=== PATIENT | male | born 1995 | race Caucasian/White ===

== ENCOUNTER 2017-06-12 19:18 | Emergency (ER) | payer OTHER ==
[2017-06-12 19:29] VITALS: TEMP 98.4; O2SAT 97
[2017-06-12] MEDS ORDERED: NS 1,000 ML IV ONE (19:54)
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
[2017-06-12] MEDS ORDERED: LORazepam 2 MG/ML INJ IVP ONE (20:10)
[2017-06-12 20:23] LABS: PLATELET COUNT 241 10^3/uL (150-400)
[2017-06-12] MEDS ORDERED: LORAZEPAM 1 MG PREPACK#4 BTL TAKEHOME ONE (21:09)
[2017-06-12 21:25] VITALS: BP 128/72; PULSE 67; RESP 16
== END 2017-06-12 21:25 | disposition home or self-care (01) ==
PROC: 3E0337Z Introduction of Electrolytic and Water Balance Substance into Peripheral Vein, Percutaneous Approach (ICD-10-PCS; principal; 2017-06-12)
DX: G25.81 Restless legs syndrome (principal); T43.595A Adverse effect of other antipsychotics and neuroleptics, initial encounter; T42.6X5A Adverse effect of other antiepileptic and sedative-hypnotic drugs, initial encounter; E86.9 Volume depletion, unspecified
CPT/HCPCS: 96374; J2060

== ENCOUNTER 2017-06-25 12:01 | Emergency (ER) | payer OTHER ==
[2017-06-25 12:07] VITALS: RESP 18; O2SAT 95
[2017-06-25 12:29] LABS: % IMMATURE GRANULYOCYTES 0.2 % (0.0-1.1); ABSOLUTE IMMATURE GRANULOCYTES 0.01 10^3/uL (0.00-0.10); ADD DIFF? NO; ADD MORPH? NO; ADD SCAN? NO; ATYPICAL LYMPHOCYTE FLAG 0 (0-99); FRAGMENT RBC FLAG 10 (0-99); HEMATOCRIT 45.3 % (40.0-51.0); HEMOGLOBIN 16.1 g/dL (13.7-17.5); LEFT SHIFT FLG 0 (0-99); LIPEMIA HEMOLYSIS FLAG 90 (0-99); MEAN CELL HEMOGLOBIN 30.3 pg (27.9-34.1); MEAN CELL HEMOGLOBIN CONCENTR. 35.5 g/dL (32.4-36.7); MEAN CELL VOLUME 85.2 fL (81.5-99.8); MEAN PLATELET VOLUME 10.9 fL (8.7-11.7); PLATELET CLUMPS FLAG 10 (0-99); PLATELET COUNT 239 10^3/uL (150-400); RED BLOOD CELL COUNT 5.32 10^6/uL (4.40-6.38); RED CELL DISTRIBUTION WIDTH 11.9 % (11.5-15.2)
--- NOTE | 2017-06-25 12:29 | EDPHY ---
General - History Smoking Status: Never smoked Narrative: The patient was evaluated and managed by the physician insurance assistant. I have reviewed this chart and I agree with the findings and plan of care as documented , as indicated by my signature. I am the secondary supervising physician. I spoke with the patient. He is clearly paranoid and delusional. Placement has been arranged at [place]. Transportation was arranged. I have signed the EMTALA form. (Ana Cristina Daniel) CHIEF COMPLAINT: M1 hold HISTORY OF PRESENT ILLNESS: Patient presents on M1 hold [facility] at . M1 was completed by the licensed mental health professional there. It stated evidence of psychotic delusions, disorientation, gravely disabled. Patient will not discuss this with these. He is on his cell phone and will not put the cellphone down. He will not provide any information let me examine him at this time. Unable to obtain any and information due to this. PSYCHIATRIC DIAGNOSES: Unknown PRIOR PSYCHIATRIC EVALUATIONS: Unknown M1/DETAINER: [facility] REVIEW OF SYSTEMS: Ten systems reviewed and are negative unless otherwise noted in the HPI EXAMINATION General Appearance: Alert, no distress, talking on his cell phone, fidgeting Head: normocephalic, atraumatic Eyes: Pupils equal and round, no conjunctival pallor or injection ENT, Mouth: Mucous membranes moist. Airway appears to be patent Neck: Normal inspection, midline trachea Respiratory: No retractions or distress visualized. Cardiovascular: Regular rate Gastrointestinal: Abdomen is nondistended Back: non-tender, no bony abnormalities Neurological: GCS 15. A&O, nonfocal, Skin: Warm and dry, no rash Extremities: Nontender, no pedal edema Psychiatric: Denies suicidal ideation. Denies homicidal ideation. Flight of ideas with paranoid delusions. DIFFERENTIAL DIAGNOSES: Including but not limited to psychosis, delusions, schizophrenia, schizoaffective, psychotic break MDM: 1:15 p.m. Unable to examine the patient at this time due to him using his cell phone. M1 hold was completed prior to arrival here. He has been medically cleared at this time we will contact [facility] for evaluation. I will attempt to re-evaluate him again 2:25 p.m. Patient currently being evaluated at this time. 3:00 p.m. I was able to evaluate the patient at this time. He is not suicidal. He was expressing id is likely of delusion. He is not suicidal. He was not encephalopathic. Difficulty focusing difficulty answer my questions. He was reportedly altered prior to arrival but I do not appreciate this at this time. His mother asked to speak with me. The patient gives permission, and there was a signed HIPAA form for this as well. We talked for nearly 20 minutes regarding the patient's recent psychotic episodes. He has been hospitalized twice for this in the past month. She feels the patient is having adverse reaction to the antipsychotics and administered. At this time awaiting the placement recommendation. 4:15 p.m. Notified by [facility] a mental health professional, Bing. She has recommended placement in the patient will likely be accepted at [address] [place] [address]. She is awaiting confirmation at this time. 5:[address] p[address] At this time Dr. Daniel will assume care the patient. He is pending placement at this time. He is resting comfortably and cooperative at this time. Please see her note for final disposition. (Yousuf Reyes) - Objective Vital Signs: Initial Vital Signs Temperature (C) 98.6 F 06/25/17 12:01 Heart Rate 86 06/25/17 12:01 Respiratory Rate 18 06/25/17 12:01 Blood Pressure 142/86 H 06/25/17 12:01 O2 Sat (%) 95 06/25/17 12:01 O2 Delivery Mode Room Air Allergies/Adverse Reactions: aripiprazole [From Abilify] Allergy (Verified 06/25/17 12:06) escitalopram [From Lexapro] Allergy (Verified 06/12/17 19:26) Home Medications: Medication Instructions Recorded ARIPiprazole [Abilify 10 mg (*)] 5 - 10 mg PO DAILY 06/25/17 Divalproex ER [Depakote ER 500 MG 500 mg PO HS 06/25/17 (*)] Gabapentin [Neurontin 100 MG (*)] 200 mg PO TID 06/25/17 Multivitamins [Multivitamin (*)] 1 each PO DAILY 06/25/17 Laboratory Results: Laboratory Results 06/25/17 12:20 06/25/17 12:20 Medications Given: Discontinued Medications Gabapentin (Neurontin) 200 mg PO EDNOW ONE Stop: 06/25/17 20:06 Last Admin: 06/25/17 20:22 Dose: 200 mg Departure - Departure Disposition: Other Psych, Not [place] Clinical Impression: Acute psychosis Condition: Good Referrals: NONE *PRIMARY CARE P,. [Primary Care Provider] - As per Instructions
[2017-06-25 12:45] LABS: ANION GAP 13 mEq/L (8-16); CALCIUM 9.7 mg/dL (8.5-10.4); CARBON DIOXIDE 23 mEq/l (22-31); CHLORIDE 107 mEq/L (97-110); CREATININE 1.2 mg/dL (0.7-1.3); ETHANOL SERUM < 10 mg/dL (0-10); GLOMERULAR FILTRATION RATE > 60; GLUCOSE 114 mg/dL (70-100); POTASSIUM 4.1 mEq/L (3.5-5.2); SODIUM 143 mEq/L (134-144)
[2017-06-25] MEDS ORDERED: GABAPENTIN 100 MG CAP PO ONE (20:05)
[2017-06-25 20:22] VITALS: BP 125/82; PULSE 91; TEMP 97.7
== END 2017-06-25 20:52 ==
LOC: EEVIPCON 12:01
DX: F23 Brief psychotic disorder (principal)
CPT/HCPCS: 80305; G0480

== ENCOUNTER 2017-07-22 01:39 | Emergency (ER) | payer OTHER ==
--- NOTE | 2017-07-22 02:01 | EDPHY ---
H & P Stated Complaint: Seroquil injestion/OD Time Seen by Provider: 07/22/17 01:55 HPI/ROS: Chief Complaint: Overdose HPI: 22-year-old male who was just prescribed Seroquel and lithium yesterday. Patient states that at 9 o'clock you took 1 Seroquel. After an hour he did not feel any affected he wanted to sleep so he states he took 14 more. Patient 3 hr later told his grandmother who called EMS. Patient is still complaining about being up to sleep. Denies being suicidal. He was not trying to harm self , or other he was trying to sleep. Did have a recent admission and diagnosis of bipolar disorder for which she was started on these medications. Denies any fevers or chills. No nausea or vomiting. Denies hallucinations at this time. ROS: 10 point Review of Systems is negative except as noted in the HPI. PMH: Bipolar disorder Social History: No smoking, no alcohol, no recreational drug use Family History: non-contributory Physical Exam: Gen: Awake, Alert, No Distress HEENT: Nose: no rhinorrhea Eyes: PERRLA, EOMI Mouth: Moist mucosa Neck: Supple, no JVD Chest: nontender, lungs clear to auscultation Heart: S1, S2 normal, no murmur Abd: Soft, non-tender, no guarding Back: no CVA tenderness, no midline tenderness Ext: no edema, non-tender Skin: no rash Neuro: CN II-XII intact, Sensation grossly intact, Strength 5/5 in bilateral upper and lower extremities - Personal History Current Tetanus/Diphtheria Vaccine: Unsure Current Tetanus Diphtheria and Acellular Pertussis (TDAP): Unsure - Medical/Surgical History Hx Asthma: No Hx Chronic Respiratory Disease: No Hx Diabetes: No Hx Cardiac Disease: No Hx Renal Disease: No Hx Cirrhosis: No Hx Alcoholism: Yes Hx HIV/AIDS: No Hx Splenectomy or Spleen Trauma: No Other PMH: anxiety - Social History Smoking Status: Never smoked Constitutional: Initial Vital Signs Temperature (C) 36.4 C 07/22/17 01:40 Heart Rate 93 07/22/17 01:40 Respiratory Rate 15 07/22/17 01:40 Blood Pressure 125/72 H 07/22/17 01:40 O2 Sat (%) 96 07/22/17 01:40 O2 Delivery Mode Room Air Allergies/Adverse Reactions: aripiprazole [From Abilify] Allergy (Verified 06/25/17 12:06) escitalopram [From Lexapro] Allergy (Verified 06/12/17 19:26) Home Medications: Medication Instructions Recorded ARIPiprazole [Abilify 10 mg (*)] 5 - 10 mg PO DAILY 06/25/17 Divalproex ER [Depakote ER 500 MG 500 mg PO HS 06/25/17 (*)] Gabapentin [Neurontin 100 MG (*)] 200 mg PO TID 06/25/17 Multivitamins [Multivitamin (*)] 1 each PO DAILY 06/25/17 Medical Decision Making - Diagnostics EKG Interpretation: ECG time 4:23 a.m., sinus rhythm with a rate of 74, normal axis, normal intervals, no acute ST or T-wave changes. Normal QT. ED Course/Re-evaluation: Patient is awake and alert. He is acting appropriately. He is continuing to contract for safety. He denies any suicidal thoughts or attempts but states he just wanted to sleep. I have advised him to take his medications only as prescribed and advised him of the dangers of overdosing medications. He states he understands this. He will follow up with a psychiatrist and mental health providers today. Grandmother is happy to take him home. Is not meet any criteria for mental health hold at this time. - Data Points Laboratory Results: Laboratory Results 07/22/17 01:45 07/22/17 01:45 07/22/17 07/22/17 01:45 01:45 WBC 8.35 10^3/uL 10^3/uL (3.80-9.50) RBC 5.11 10^6/uL 10^6/uL (4.40-6.38) Hgb 15.5 g/dL g/dL (13.7-17.5) Hct 45.0 % % (40.0-51.0) MCV 88.1 fL fL (81.5-99.8) MCH 30.3 pg pg (27.9-34.1) MCHC 34.4 g/dL g/dL (32.4-36.7) RDW 12.4 % % (11.5-15.2) Plt Count 224 10^3/uL 10^3/uL (150-400) MPV 11.0 fL fL (8.7-11.7) Neut % (Auto) 58.1 % % (39.3-74.2) Lymph % (Auto) 34.4 % % (15.0-45.0) [place] % (Auto) 6.2 % % (4.5-13.0) Eos % (Auto) 1.0 % % (0.6-7.6) Baso % (Auto) 0.1 % L % (0.3-1.7) Nucleat RBC Rel Count 0.0 % % (0.0-0.2) Absolute Neuts (auto) 4.85 10^3/uL 10^3/uL (1.70-6.50) Absolute Lymphs (auto) 2.87 10^3/uL 10^3/uL (1.00-3.00) Absolute Monos (auto) 0.52 10^3/uL 10^3/uL (0.30-0.80) Absolute Eos (auto) 0.08 10^3/uL 10^3/uL (0.03-0.40) Absolute Basos (auto) 0.01 10^3/uL L 10^3/uL (0.02-0.10) Absolute Nucleated RBC 0.00 10^3/uL 10^3/uL (0-0.01) Immature Gran % 0.2 % % (0.0-1.1) Immature Gran # 0.02 10^3/uL 10^3/uL (0.00-0.10) Sodium 144 mEq/L mEq/L (134-144) Potassium 3.7 mEq/L mEq/L (3.5-5.2) Chloride 103 mEq/L mEq/L (97-110) Carbon Dioxide 28 mEq/l mEq/l (22-31) Anion Gap 13 mEq/L mEq/L (8-16) BUN 11 mg/dL mg/dL (7-23) Creatinine 1.0 mg/dL mg/dL (0.7-1.3) Estimated GFR > 60 Glucose 135 mg/dL H mg/dL (70-100) Calcium 10.1 mg/dL mg/dL (8.5-10.4) [place] < 0.2 mEq/L L mEq/L (0.6-1.2) Ethyl Alcohol < 10 mg/dL mg/dL (0-10) Departure - Departure Disposition: Home, Routine, Self-Care Clinical Impression: Overdose Condition: Good Instructions: Adult Overdose (ED) Additional Instructions: Please only take her medications as prescribed. Follow up with your mental health providers today. Return to the emergency department for thoughts of suicide, worsening depression , hallucinations, or any other concerns. Referrals: Patient,NotPresent [Unknown] - As per Instructions
[2017-07-22 03:53] LABS: % IMMATURE GRANULYOCYTES 0.2 % (0.0-1.1); ABSOLUTE IMMATURE GRANULOCYTES 0.02 10^3/uL (0.00-0.10); ADD DIFF? NO; ADD MORPH? NO; ADD SCAN? NO; ATYPICAL LYMPHOCYTE FLAG 0 (0-99); FRAGMENT RBC FLAG 0 (0-99); HEMOGLOBIN 15.5 g/dL (13.7-17.5); LEFT SHIFT FLG 0 (0-99); LIPEMIA HEMOLYSIS FLAG 90 (0-99); MEAN CELL HEMOGLOBIN 30.3 pg (27.9-34.1); MEAN CELL HEMOGLOBIN CONCENTR. 34.4 g/dL (32.4-36.7); MEAN CELL VOLUME 88.1 fL (81.5-99.8); PLATELET CLUMPS FLAG 0 (0-99); PLATELET COUNT 224 10^3/uL (150-400); RED BLOOD CELL COUNT 5.11 10^6/uL (4.40-6.38); RED CELL DISTRIBUTION WIDTH 12.4 % (11.5-15.2)
[2017-07-22 03:59] LABS: ANION GAP 13 mEq/L (8-16); CALCIUM 10.1 mg/dL (8.5-10.4); CARBON DIOXIDE 28 mEq/l (22-31); CHLORIDE 103 mEq/L (97-110); ETHANOL SERUM < 10 mg/dL (0-10); GLOMERULAR FILTRATION RATE > 60; GLUCOSE 135 mg/dL (70-100); POTASSIUM 3.7 mEq/L (3.5-5.2); SODIUM 144 mEq/L (134-144)
[2017-07-22 04:02] LABS: LITHIUM < 0.2 mEq/L (0.6-1.2)
--- NOTE | 2017-07-22 04:45 | CPEKG ---
Heart Rate: 74 RR Interval: 811 P-R Interval: 152 QRSD Interval: 90 QT Interval: 372 QTC Interval: 413 P Silas: 63 QRS Silas: 64 T Wave Silas: 65 EKG Severity - NORMAL ECG - EKG Impression: SINUS RHYTHM Electronically Signed By: Roe Smith 22-Jul-2017 23:35:30
[2017-07-22 05:49] VITALS: O2SAT 95
[2017-07-22 06:33] VITALS: BP 115/62; PULSE 80; RESP 14; TEMP 98.6
== END 2017-07-22 06:30 | disposition home or self-care (01) ==
LOC: EDUNIT#
DX: T43.591A Poisoning by other antipsychotics and neuroleptics, accidental (unintentional), initial encounter (principal)
CPT/HCPCS: G0480

== ENCOUNTER 2018-07-14 21:26 | Inpatient (IN) | payer OTHER ==
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
[2018-07-14] MEDS ORDERED: OLANZapine DISINTEGR 10 MG TAB ONE (21:35)
[2018-07-14] MEDS ORDERED: LORazepam 1 MG TAB ONE (21:35)
[2018-07-14 21:54] LABS: PLATELET COUNT 265 10^3/uL (150-400)
[2018-07-14] MEDS ORDERED: OLANZapine DISINTEGR 10 MG TAB PO ONE (22:07)
[2018-07-14] MEDS ORDERED: LORazepam 1 MG TAB PO ONE (22:07)
--- NOTE | 2018-07-14 23:47 | ASMTCMCOM ---
CM Note CM Note Notes: Pt is sedated and not able to wake for evaluation. Clinician called [facility] at listed number. Phone rings once and stops. Clinician will seek better working number for [facility] once pt awakes. FOP called and message left for him. Date Signed: 07/14/2018 11:47 PM Electronically Signed By:Bing Devine
[2018-07-15] MEDS ORDERED: LORazepam 1 MG TAB PO ONE ×2 (04:57→08:42)
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
--- NOTE | 2018-07-15 07:49 | ASMTTCLDSP ---
TLC Discharge Disposition Disposition: Answers: Admit Disposition Notes: Notes: Addmit 3N. Discharge Concerns/Recommendations: Notes: In consultation with [facility] ED physician, Chele Trevino MD and on-call psychiatrist, Nikita Ugarte MD, both concurred that pt appears to meet 27-65 criteria requiring psychiatric hospitalization as pt appears to be at risk of harm to self/others/gravely disabled due to a mental illness condition. Pt was given (but declined to sign) the 3N prohibited belongings list while in the ED. Was patient given the Answers: Yes Inpatient Behavioral Health Prohibited Belongings List while in the ED? For inpatient Nikita Ugarte MD admission, the following psychiatrist agreed to accept patient for admission to Behavioral Health ([facility]): Type of Hold: Answers: M1/72-hour Hold Hold initiated by: Answers: ED Physician Date Signed: 07/15/2018 07:49 AM Electronically Signed By:Brian Thomas
[2018-07-15] MEDS ORDERED: OLANZapine 10 MG/2 ML VIAL IM ONE (08:42)
[2018-07-15] MEDS ORDERED: LORazepam 1 MG TAB ONE (08:42)
[2018-07-15] MEDS ORDERED: OLANZapine 10 MG/2 ML VIAL ONE (08:42)
[2018-07-15] MEDS ORDERED: OLANZapine DISINTEGR 10 MG TAB PO PRN (10:14)
[2018-07-15] MEDS ORDERED: MAGNESIUM HYDROXIDE 30 ML UDCUP PO PRN (10:14)
[2018-07-15] MEDS ORDERED: LORazepam 0.5 MG TAB PO PRN (10:14)
[2018-07-15] MEDS ORDERED: LITHIUM CARBONATE ER 300 MG TAB PO ONE (10:57)
[2018-07-15] MEDS: ACETAMINOPHEN 325 MG TAB PO PRN (11:45)
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
--- NOTE | 2018-07-15 14:46 | ASMTCMCOM ---
CM Note CM Note Notes: CC attempted to meet with pt several times but each time pt was unavailable due to meeting with MD, with family or was sleeping. Date Signed: 07/15/2018 02:45 PM Electronically Signed By:Jenna Romo
--- NOTE | 2018-07-15 14:59 | PDMN ---
Medical Necessity Medical necessity: Pt meets inpt criteria per MD order and [facility] [id number], Bipolar Disorders, Adult: Inpatient Care, 4 days. 23 y/o w/hx bipolar 1 disorder on M1 Hold due to being gravely disabled due to a mental illness admitted with current acute psychosis and nicolasa requiring inpt psychiatric hospitalization.
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
[2018-07-15] MEDS: OLANZapine DISINTEGR 10 MG TAB PO PRN (16:15)
[2018-07-15] MEDS: LORazepam 0.5 MG TAB PO PRN ×2 (16:17→22:11)
[2018-07-15] MEDS: MAG HYDROX/AL HYDROX/SIMETH 30 ML UDCUP PO PRN (17:26)
[2018-07-15] MEDS: LITHIUM CARBONATE ER 300 MG TAB PO SCH (21:03)
[2018-07-16] MEDS ORDERED: LORazepam 1 MG TAB ONE (04:02)
[2018-07-16] MEDS ORDERED: LORazepam 1 MG TAB PO ONE ×3 (04:15→06:37)
[2018-07-16] MEDS ORDERED: OLANZapine DISINTEGR 10 MG TAB PO ONE ×2 (04:15→21:00)
[2018-07-16] MEDS ORDERED: LORazepam 2 MG/ML INJ IM PRN ×2 (04:15→04:18)
[2018-07-16] MEDS ORDERED: OLANZapine 10 MG/2 ML VIAL IM PRN ×2 (04:15→04:41)
--- NOTE | 2018-07-16 04:39 | SOAPPROG ---
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 Had been off medications, with +Utox THC. Received zyprexa 10 po and Ativan 2mg po in ED. Took zyprexa 10m po and [place] 600mg this pm. 07/16/18 04:37 Phone call from nursing staff to inform patient was placed in seclusion. Was sleeping earlier in the evening but apparently awakened feeling agitated, attempted to hit staff, yelling/screaming and was not responding to verbal redirection. Required physical restraint by security in order to enter seclusion. Yelled that he would go "all McMurphy". Pounding on seclusion door/ mckeon. 2nd security also called to unit. Due to patient's nicolasa and psychosis, with threatening behavior and verbal hostility, he was placed in locked seclusion. With 2 security standing by, RN offered patient medications and he accepted zyprexa 10mg po and Ativan 2mg po. RN reported VS with elevated HR and SBP, likely due to acute agitation. Due to his psychosis and unpredictable behavior, he was felt to be an imminent danger to others and started on emergency medications: EMEDS Day #1: Zyprexa 5 po/IM BID Ativan 1-2mg po/IM q4hr prn Objective: Vital Signs Temp Pulse Resp BP Pulse Ox 37 C 88 16 133/74 H 96 07/14/18 21:27 07/14/18 21:27 07/14/18 23:00 07/14/18 21:27 07/14/18 21:27 - Pending Discharge Pending Discharge Within 24 Hours: No Pending Discharge Within 48 Hours: No ICD10 Worksheet Patient Problems: Problems Problem Status Onset Acute psychosis Acute Cannabis use disorder, severe, dependence Acute Bipolar I disorder, current or most recent episode manic, severe with mood- congruent psychotic features Chronic
[2018-07-16] MEDS ORDERED: diphenhydrAMINE 50 MG CAP PO PRN (05:20)
[2018-07-16] MEDS ORDERED: diphenhydrAMINE 50 MG CAP PO ONE (05:27)
[2018-07-16] MEDS ORDERED: HALOPERIDOL 5 MG TAB PO ONE ×4 (06:37→07:35)
[2018-07-16] MEDS ORDERED: HALOPERIDOL 5 MG TAB ONE (06:40)
[2018-07-16] MEDS: LORazepam 1 MG TAB PO PRN ×3 (07:02→16:31)
[2018-07-16] MEDS ORDERED: LORazepam 0.5 MG TAB PO ONE ×3 (07:16→07:35)
--- NOTE | 2018-07-16 07:53 | SOAPPROG ---
SOAP Progress Note Assessment/Plan: Assessment: Bipolar I Disorder, Severe, with mood congruent psychotic features. No improvement noted. (see subjective/objective note). Patient is not safe to discharge at this time as patient continues to exhibit signs of psychosis and nicolasa, and express psychosis and nicolasa symptoms. Patient requires continued inpatient care because of current psychosis and nicolasa, and requires inpatient level of care to stabilize in order to no longer be gravely disabled due to mental illness. Due to patients current, acute state he is unable to communicate his basic needs and requires direction and prompting from staff to perform ADLs. Patient exhibits inability to provide for himself, neglecting self-care, withdrawn from social interactions, currently shows inability to maintain any appropriate aspect of personal responsibility as an adult, patient becomes agitated and irritable when asked simple and appropriate questions. Patient required seclusion and PRN meds this AM due to agitation and threatening toward staff. Patient could benefit from continued inpatient hospitalization for crisis stabilization, safety, and medication evaluation. Plan: 1. Psychotropic medications: After reviewing options, risks, and benefits patient agrees to continue current medications. No medication changes at this time as more time is needed to determine ongoing tolerability and efficacy. Plan is to continue to observe patient for response and side effects from medications, and ongoing monitoring and evaluation. 2. Review with patient informed consent and recommendations for psychotropic medication treatment listed below 3. Labs: no additional labs at this time 4. Therapy: continue milieu and group therapy 5. Further investigation including gathering information from patients relatives and review of past case records to inform treatment plan. 6. Safety/Wellness plan and follow-up outpatient appointments to be established prior to discharge. Next steps are for patient to meet with child care center assistant director to plan a safe discharge plan and establish outpatient services for ongoing treatment. 7. Confer with inpatient treatment team regarding treatment plan. 8. Psychosocial stressors addressed through shelter case manager 9. Legal status: M1 10. Consider discharge next week if patient is in stable condition, safe, and has a safe discharge plan. 11. Substance abuse interventions: cannabis PSYCHOTROPIC MEDICATION TREATMENT INFORMED CONSENT and RECOMMENDATIONS: Review nature of condition, diagnosis, and prognosis. Review nature and purpose of psychotropic medication treatment. Review type of psychotropic medications being ordered. Review risk and benefits of psychotropic medication treatment. Review probable length of time patient will need to take medications. Review risk and benefits of not undergoing psychotropic medication treatment. Review alternative treatments to psychotropic medications. Review psychotropic medications contraindications, drug-drug interactions, side effects, and importance of reporting any side effects to a psychiatric provider or nurse during inpatient hospitalization, and upon discharge to patients psychiatric outpatient provider, primary care provider, or other health hospice patient care secretary. Review importance of asking a nurse, psychiatric provider, or primary care provider any questions or problems concerning the psychotropic medications. Verify patient understands the information that has been provided, and understands, accepts, and agrees to psychotropic medications. Review patients safety plan and importance of patient to report to staff while hospitalized if patient is ever a danger to self/others, or unable to care for self, and upon discharge, the importance for patient to contact [facility] or [facility], or go to the nearest emergency room, if patient is ever a danger to self/others, or unable to care for self. Recommend that upon discharge patient establish medication management treatment with a psychiatric provider, establishes routine therapy appointments, and follow-up with primary care provider. Verify patient understands and agrees to these recommendations. 07/16/18 07:52 Subjective: Following up with patient for evaluation of psychosis and safety. Patient reports, "Look at this shit, this is my shit on the floor. I am about to smear it all over the floor. Yes, I will take some more meds, thank you." Patient expresses the following psychiatric symptoms severely agitated. Patient reports taking medications as prescribed, and describes response to medications as "not good." Patient does not report undesirable side effects from the medications, and agrees to continue current medications. Patient describes getting no sleep, and reports he feels rested. Objective: Vital Signs Temp Pulse Resp BP Pulse Ox 36.3 C 135 H 16 143/78 H 93 07/16/18 04:41 07/16/18 04:41 07/16/18 04:41 07/16/18 04:41 07/16/18 04:41 NURSING REPORT: Consulted with nursing for update on patients progress in treatment. Nurses report patient is not engaged in treatment, is not attending groups, slept 0 hours, expresses the following psychiatric symptoms: severely agitated, exhibits the following psychiatric symptoms: agitated, threatening, posturing toward staff, required seclusion and PRN meds this AM due to aggression and threats toward staff, is eating all meals, is agreeable to medications and taking as prescribed with no report of side effects, with no s/ s of EPS/akathisia, and denies SI/HI, denies A/V hallucinations, and denies delusions. MSE: The patient is a well-nourished male looking stated chronological age. Attire is inappropriate and dress is casual and disheveled. Grooming status is inappropriate and disheveled. Ambulation is independent. Gait is normal and coordinated. Posture is tense, threatening, and posturing. Eye contact is inappropriate and staring. Motor activity is appropriate with purposeful, organized, coordinated movements; with no involuntary movements. Attitude is uncooperative. Patient appears distracted and does not relate well to this interviewer. Language production is spontaneous. Rate is pressured, latency of response is shortened, volume is high and inappropriate. Amount is hyperverbal. Articulation is screaming. Patient reports mood as okay with incongruent and expansive affect. Patients thought process disorganized, tangential, nonsensical, illogical, and non-linear. Patient does not report suicidal/homicidal thoughts, ideas, or plans. Patient denies auditory, visual hallucinations. Patient reports delusions. Patient does not appear to be attending to internal stimuli. Patients attention and concentration are poor. Patient is oriented to person, place, time. Patients insight and judgment poor. - Time Spent With Patient Time Spent With Patient: 15 minutes, met with patient individually. - Pending Discharge Pending Discharge Within 24 Hours: No Pending Discharge Within 48 Hours: No ICD10 Worksheet Patient Problems: Problems Problem Status Onset Acute psychosis Acute Cannabis use disorder, severe, dependence Acute Bipolar I disorder, current or most recent episode manic, severe with mood- congruent psychotic features Chronic
[2018-07-16] MEDS: LITHIUM CARBONATE ER 300 MG TAB PO SCH ×2 (08:51→20:20)
[2018-07-16] MEDS ORDERED: OLANZapine DISINTEGR 10 MG TAB PO SCH (09:00)
[2018-07-16] MEDS: OLANZapine DISINTEGR 10 MG TAB PO PRN (10:40)
[2018-07-16] MEDS: HALOPERIDOL 5 MG TAB PO PRN ×2 (11:35→17:57)
--- NOTE | 2018-07-16 13:51 | ASMTBHMTP ---
Master Treatment Plan Master Treatment Plan Answers: Mood Instability with for: Psychosis Date: 07/16/2018 Diagnosis on Admission: Bipolar I Disorder with Psychotic Features 296.44 (F31.2) Expected length of stay: 3-5 Reason for admission: Notes: The patient stated "My mom. She said I need to come here to get off the street; stop being a fuck." "I think it is about emotional husbandry." Patient's stated presenting problems: Notes: The patient stated, "I'm not facing any problems outside the hospital, just inside the hospital." Patient's goals for treatment: Notes: The patient stated, "leaving." Patient's strengths: Notes: The patient stated, "intelligence and creativity." Identify supports outside of hospital: Notes: The patient stated, "my mother and father, Caroline and Dominic Longoria." Discharge criteria: Notes: Patient will demonstrate more stable mood by discharge. Initial disposition plan/considerations: Notes: The patient plans to discharge with his father. [facility]. Master Treatment Plan Required Signatures Psychiatrist signature: Answers: Psychiatrist: RN on-shift signature: Answers: RN: Patient signature: Answers: Patient: Date Signed: 07/16/2018 01:50 PM Electronically Signed By:Chelsea Field
[2018-07-16] MEDS: OLANZapine DISINTEGR 10 MG TAB PO SCH (20:20)
[2018-07-17] MEDS: LORazepam 1 MG TAB PO PRN ×4 (01:49→23:40)
[2018-07-17] MEDS: HALOPERIDOL 5 MG TAB PO PRN ×4 (02:01→20:00)
[2018-07-17] MEDS: OLANZapine DISINTEGR 10 MG TAB PO SCH (07:41)
[2018-07-17] MEDS: LITHIUM CARBONATE ER 300 MG TAB PO SCH ×2 (07:41→20:27)
[2018-07-17] MEDS ORDERED: LORazepam 1 MG TAB ONE (09:40)
[2018-07-17] MEDS ORDERED: LORazepam 1 MG TAB PO ONE (12:24)
--- NOTE | 2018-07-17 17:53 | SOAPPROG ---
SOAP Progress Note Assessment/Plan: Assessment: Per Dr. 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 Had been off medications, with +Utox THC. Received zyprexa 10 po and Ativan 2mg po in ED. Took zyprexa 10m po and [place] 600mg this pm. 07/16/18 04:37 Phone call from nursing staff to inform patient was placed in seclusion. Was sleeping earlier in the evening but apparently awakened feeling agitated, attempted to hit staff, yelling/screaming and was not responding to verbal redirection. Required physical restraint by security in order to enter seclusion. Yelled that he would go "all McMurphy". Pounding on seclusion door/ mckeon. 2nd security also called to unit. Due to patient's nicolasa and psychosis, with threatening behavior and verbal hostility, he was placed in locked seclusion. With 2 security standing by, RN offered patient medications and he accepted zyprexa 10mg po and Ativan 2mg po. RN reported VS with elevated HR and SBP, likely due to acute agitation. Due to his psychosis and unpredictable behavior, he was felt to be an imminent danger to others and started on emergency medications: EMEDS Day #1: Zyprexa 5 po/IM BID Ativan 1-2mg po/IM q4hr prn Plan: 07/17/18 17:48 1. Patient in seclusion this AM for escalated aggressive behavior toward staff and peers. Patient agreed to take PO meds so no emergency meds were ordered. Patient states he is willing to take PRN Haldol to "calm down." MD reviewed chart and discussed patient with staff who have provided care for past two days. They report patient has shown little improvement with Olanzapine. It doesn 't seem to stop his agitation/aggression. Haldol appears to have more calming effect on patient. Will d/c Olanzapine and use Haldol 5mg PO Q4H PRN. Will also add Ativan 1-2 mg Q4H PRN. MD gave patient 2 dose of Haldol and Ativan this AM and Noon with good effect. 2. explained r/b/se's of Depakote with patient. He had previously taken this med at [place], but patient refused yesterday. He told MD initially that he was "allergic" and then said VPA made him "shit my pants." Later patient admitted these things weren't true and said he would take VPA if "that's what you think I need." Patient was extremely labile and hostile to MD at times, but did consent to Depakote as mood stabilizer. 3. Will change legal status to [facility]. Subjective: Patient in seclusion this AM for < 1 hour. Patient agreed to take PO Haldol 5mg and Ativan 2mg x 2 doses 4 hrs apart. He seemed to respond better than when taking Olanzapine. He initially refused Depakote, but later gave consent after MD explained r/b/se's. Objective: Vital Signs Temp Pulse Resp BP Pulse Ox 36.4 C 135 H 16 130/88 H 98 07/17/18 06:00 07/17/18 09:30 07/17/18 09:30 07/17/18 06:00 07/17/18 09:30 MSE: Affect: Irritable, hostile Mood: "Good" TP: Illogical TC: Denies any SI/ HI Perception: Denies any AH/VH, no RIS observed Insight/Judgment: Poor - Time Spent With Patient Time Spent With Patient: 25" - Pending Discharge Pending Discharge Within 24 Hours: No Pending Discharge Within 48 Hours: No ICD10 Worksheet Patient Problems: Problems Problem Status Onset Acute psychosis Acute Cannabis use disorder, severe, dependence Acute Bipolar I disorder, current or most recent episode manic, severe with mood- congruent psychotic features Chronic
[2018-07-17] MEDS: DIVALPROEX ER 500 MG TAB PO SCH ×2 (20:26→22:50)
[2018-07-18] MEDS: HALOPERIDOL 5 MG TAB PO PRN ×3 (02:56→13:15)
[2018-07-18] MEDS: LORazepam 1 MG TAB PO PRN ×4 (03:40→22:33)
[2018-07-18] MEDS: LITHIUM CARBONATE ER 300 MG TAB PO SCH ×2 (07:39→22:04)
[2018-07-18] MEDS ORDERED: ZIPRASIDONE MESYLATE 20 MG VIAL IM ONE ×2 (13:45→14:34)
[2018-07-18] MEDS ORDERED: LORazepam 2 MG/ML INJ IM ONE (13:49)
--- NOTE | 2018-07-18 14:47 | ASMTCMCOM ---
CM Note CM Note Notes: Pt. reports feeling "good". Pt. stated he slept "marvously". Pt. stated he has "never felt more nutrition". Pt. stated he "has an issue with Depakote". Pt. stated he struggled to take both large pills last night, but reports "now feel fantastic". Pt. stated if the doctor wants him to take Depakote he can "suck my you know what". Pt. stated "he need to know how smart I am". When asked about SI/HI pt stated "when I don't get my way". Pt. laughed and stated "I ain't going to lillian nobody", and asked CC to write that down. Pt. denied AVH and paranoia. Pt. requested his follow up appointments be scheduled in [place]. Pt. presents as alert, disorganized, delusional, grandiose, fair eye contact, and mostly cooperative. Staff report pt. sleeping 8 hours and being medication compliant. Pt. was secluded later in the day while parents were visiting. Date Signed: 07/18/2018 02:46 PM Electronically Signed By:Jenna Romo
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
--- NOTE | 2018-07-18 15:34 | ASMTBHDC ---
Notes Note: Notes: Pt asked CC about her position and what a CC does. Pt. then stated he is not willing to go to [facility]. Pt. stated his PCP is "Maximus Ravi" in [place], [place]. Pt. stated he "won't deal with non-mandaen robin". Pt. told CC not to make follow up appointments, stating "will be tossed out regardless". Date Signed: 07/18/2018 03:34 PM Electronically Signed By:Jenna Romo
[2018-07-18] MEDS: ACETAMINOPHEN 325 MG TAB PO PRN (17:51)
--- NOTE | 2018-07-18 18:19 | SOAPPROG ---
SOAP Progress Note Assessment/Plan: Assessment: Per Dr. 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 Had been off medications, with +Utox THC. Received zyprexa 10 po and Ativan 2mg po in ED. Took zyprexa 10m po and Wilsall 600mg this pm. 07/16/18 04:37 Phone call from nursing staff to inform patient was placed in seclusion. Was sleeping earlier in the evening but apparently awakened feeling agitated, attempted to hit staff, yelling/screaming and was not responding to verbal redirection. Required physical restraint by security in order to enter seclusion. Yelled that he would go "all McMurphy". Pounding on seclusion door/ mckeon. 2nd security also called to unit. Due to patient's nicolasa and psychosis, with threatening behavior and verbal hostility, he was placed in locked seclusion. With 2 security standing by, RN offered patient medications and he accepted zyprexa 10mg po and Ativan 2mg po. RN reported VS with elevated HR and SBP, likely due to acute agitation. Due to his psychosis and unpredictable behavior, he was felt to be an imminent danger to others and started on emergency medications: EMEDS Day #1: Zyprexa 5 po/IM BID Ativan 1-2mg po/IM q4hr prn Plan: 07/17/18 17:48 1. Patient in seclusion this AM for escalated aggressive behavior toward staff and peers. Patient agreed to take PO meds so no emergency meds were ordered. Patient states he is willing to take PRN Haldol to "calm down." MD reviewed chart and discussed patient with staff who have provided care for past two days. They report patient has shown little improvement with Olanzapine. It doesn 't seem to stop his agitation/aggression. Haldol appears to have more calming effect on patient. Will d/c Olanzapine and use Haldol 5mg PO Q4H PRN. Will also add Ativan 1-2 mg Q4H PRN. MD gave patient 2 dose of Haldol and Ativan this AM and Noon with good effect. 2. explained r/b/se's of Depakote with patient. He had previously taken this med at [facility], but patient refused yesterday. He told MD initially that he was "allergic" and then said VPA made him "shit my pants." Later patient admitted these things weren't true and said he would take VPA if "that's what you think I need." Patient was extremely labile and hostile to MD at times, but did consent to Depakote as mood stabilizer. 3. Will change legal status to [facility]. 07/18/18 18:03 1. Patient became extremely agitated and aggressive during visit with POC today at lunch. He went to his room and started banging the wall, slamming door and throwing objects. Staff were unable to calm patient down and he went into seclusion. Patient continued to bang on mckeon, screaming. MD ordered one time e- meds: Geodon IM 20mg, Ativan IM 2mg, Benadryl 50mg IM. Patient had good response to medications, was able to leave seclusion and went to his room and slept. 2. Parents spoke with CC and RN at length about patient's prior psych hx. Here is what MD was able to learn from family: #05/2017 - first psych admission to [facility], started on Depakote and Abilify w / good response #Fall/winter - [facility] provider prescribed Neurontin which MOC says was a "disaster" b/c it made patient so agitated he was "handcuffed" by Eleni PERDUE and taken to [facility] # Readmitted to [facility] and given trial of Wilsall which MOC says made patient "suicidal, miserable" and patient felt " in my body" #Parents sent patient to [facility] - a residential tx facility in [place] - took Zyprexa and Prozac. MOC says Zyprexa was "wonderful" and patient "only needed" 5mg #Spring 2017 - patient started consuming large amounts of THC edibles #FOC reports behavior is all due to THC and says agitated, irrational behavior is "much worse" when using edibles and smoking THC #MOC doesn't think THC is "such a bad thing" and reports psych meds "make him worse" 3. POC do not agree on what meds are most effective. MOC thinks he only needs low dose Olanzapine, but high doses of Olanzapine have shown little effectiveness during this hospitalization. FOC thinks psych meds are not very effective at all. He says THC "makes him (Yoan) worse." MOC thinks Depakote "makes him (Yoan) worse." But she also admits that patient did better while he was at [facility] taking Depakote and Abilify. But she says he started doing worse when he left hospital. FOC says it's b/c patient started using THC again. 4. On Thursday, patient had good response to Geodon. He may benefit from being started on scheduled dose of Geodon. Since parents give conflicting reports of patient's prior response to treatment, recommends obtaining medical records from prior providers, including [facility] and [facility] to gain more accurate understanding of patient's history. 5. EKG ordered since patient has been on multiple medications that can cause QTc prolongation. Subjective: Patient went into seclusion after becoming severely agitated during visit with parents at lunch. He received IM Geodon, Ativan and Benadryl and responded well. He slept for most of the evening. Objective: Vital Signs Temp Pulse Resp BP Pulse Ox 36.8 C 105 H 16 134/82 H 95 07/18/18 06:00 07/18/18 06:00 07/18/18 06:00 07/18/18 06:00 07/18/18 06:00 MSE: Affect: Irritable, labile Mood: Angry TP: Loose, FOI TC: Denies SI/HI, paranoid delusions Perception: No AH/VH Insight/Judgment: Impaired - Time Spent With Patient Time Spent With Patient: 15" - Pending Discharge Pending Discharge Within 24 Hours: No Pending Discharge Within 48 Hours: No ICD10 Worksheet Patient Problems: Problems Problem Status Onset Acute psychosis Acute Cannabis use disorder, severe, dependence Acute Bipolar I disorder, current or most recent episode manic, severe with mood- congruent psychotic features Chronic
[2018-07-18] MEDS: DIVALPROEX ER 500 MG TAB PO SCH (22:04)
[2018-07-19] MEDS: LORazepam 1 MG TAB PO PRN ×3 (03:46→11:22)
[2018-07-19] MEDS: HALOPERIDOL 5 MG TAB PO PRN ×2 (03:47→11:23)
[2018-07-19] MEDS: LITHIUM CARBONATE ER 300 MG TAB PO SCH ×3 (08:03→18:51)
[2018-07-19] MEDS: ZIPRASIDONE HCL 40 MG CAP PO SCH ×2 (08:03→18:50)
--- NOTE | 2018-07-19 08:06 | SOAPPROG ---
SOAP Progress Note Assessment/Plan: Assessment: Bipolar I Disorder, Severe, with mood congruent psychotic features. No improvement noted. (see subjective/objective note). Patient is not safe to discharge at this time as patient continues to exhibit signs of psychosis and nicolasa, and express psychosis and nicolasa symptoms. Patient requires continued inpatient care because of current psychosis and nicolasa, and requires inpatient level of care to stabilize in order to no longer be gravely disabled due to mental illness. Due to patients current, acute state he is unable to communicate his basic needs and requires direction and prompting from staff to perform ADLs. Patient is unable to communicate his basic needs. Patient exhibits inability to provide for himself, neglecting self-care, withdrawn from social interactions, currently shows inability to maintain any appropriate aspect of personal responsibility as an adult, patient becomes agitated and irritable when asked simple and appropriate questions. Patient required seclusion and PRN meds over the weekend due to agitation and threatening toward staff. Patient could benefit from continued inpatient hospitalization for crisis stabilization, safety, and medication evaluation. Plan: 1. Psychotropic medications: After reviewing options, risks, and benefits patient agrees to continue current mediations with following changes: agrees to discontinue Depakote ER and agrees to Geodon 40 mg po BID. No medication changes at this time as more time is needed to determine ongoing tolerability and efficacy. Plan is to continue to observe patient for response and side effects from medications, and ongoing monitoring and evaluation. 2. Review with patient informed consent and recommendations for psychotropic medication treatment listed below 3. Labs: no additional labs at this time 4. Therapy: continue milieu and group therapy 5. Further investigation including gathering information from patients relatives and review of past case records to inform treatment plan. 6. Safety/Wellness plan and follow-up outpatient appointments to be established prior to discharge. Next steps are for patient to meet with career technology teacher to plan a safe discharge plan and establish outpatient services for ongoing treatment. 7. Confer with inpatient treatment team regarding treatment plan. 8. Psychosocial stressors addressed through business case analyst 9. Legal status: [facility] 10. Consider discharge next week if patient is in stable condition, safe, and has a safe discharge plan. 11. Substance abuse interventions: cannabis PSYCHOTROPIC MEDICATION TREATMENT INFORMED CONSENT and RECOMMENDATIONS: Review nature of condition, diagnosis, and prognosis. Review nature and purpose of psychotropic medication treatment. Review type of psychotropic medications being ordered. Review risk and benefits of psychotropic medication treatment. Review probable length of time patient will need to take medications. Review risk and benefits of not undergoing psychotropic medication treatment. Review alternative treatments to psychotropic medications. Review psychotropic medications contraindications, drug-drug interactions, side effects, and importance of reporting any side effects to a psychiatric provider or nurse during inpatient hospitalization, and upon discharge to patients psychiatric outpatient provider, primary care provider, or other health career technical supervisor. Review importance of asking a nurse, psychiatric provider, or primary care provider any questions or problems concerning the psychotropic medications. Verify patient understands the information that has been provided, and understands, accepts, and agrees to psychotropic medications. Review patients safety plan and importance of patient to report to staff while hospitalized if patient is ever a danger to self/others, or unable to care for self, and upon discharge, the importance for patient to contact [facility] or [facility], or go to the nearest emergency room, if patient is ever a danger to self/others, or unable to care for self. Recommend that upon discharge patient establish medication management treatment with a psychiatric provider, establishes routine therapy appointments, and follow-up with primary care provider. Verify patient understands and agrees to these recommendations. 07/19/18 07:54 Subjective: Following up with patient for evaluation of psychosis and safety. Patient reports, "I had to go to the hole a few times this weekend for some bullshit stuff. The medications are working great though, expect for the Depakote. Maybe we could stop that one? With or without it, whatever. Its a good combination. Feel calmer." Patient expresses the following psychiatric symptoms anxious. Patient reports taking medications as prescribed, and describes response to medications as not good. Patient does not report undesirable side effects from the medications, agrees to discontinue Depakote ER , and agrees to Geodon 40 mg po BID. Patient describes getting 7 hours of sleep , and reports he feels rested. Objective: Vital Signs Temp Pulse Resp BP Pulse Ox 36.2 C 103 H 14 128/71 H 96 07/19/18 06:00 07/19/18 06:00 07/19/18 06:00 07/19/18 06:00 07/19/18 06:00 NURSING REPORT: Consulted with nursing for update on patients progress in treatment. Nurses report patient is not engaged in treatment, is not attending groups, slept 6 hours, expresses the following psychiatric symptoms: severely agitated, exhibits the following psychiatric symptoms: agitated, threatening, posturing toward staff, required seclusion and PRN meds over the weekend due to aggression and threats toward staff, is eating all meals, is agreeable to medications and taking as prescribed with no report of side effects, with no s/ s of EPS/akathisia, and denies SI/HI, denies A/V hallucinations, and denies delusions. MD REPORT FROM WEEKEND: Has been in seclusion every day. Agitated, aggressive toward staff. Geodon seemed to be the most effective antipsychotic so far. MSE: The patient is a well-nourished male looking stated chronological age. Attire is inappropriate and dress is casual and disheveled. Grooming status is inappropriate and disheveled. Ambulation is independent. Gait is normal and coordinated. Posture is tense, threatening, and posturing. Eye contact is inappropriate and staring. Motor activity is appropriate with purposeful, organized, coordinated movements; with no involuntary movements. Attitude is uncooperative. Patient appears distracted and does not relate well to this interviewer. Language production is spontaneous. Rate is pressured, latency of response is shortened, volume is high and inappropriate. Amount is hyperverbal. Articulation is screaming. Patient reports mood as okay with incongruent and expansive affect. Patients thought process disorganized, tangential, nonsensical, illogical, and non-linear. Patient does not report suicidal/homicidal thoughts, ideas, or plans. Patient denies auditory, visual hallucinations. Patient reports delusions. Patient does not appear to be attending to internal stimuli. Patients attention and concentration are poor. Patient is oriented to person, place, time. Patients insight and judgment poor. - Time Spent With Patient Time Spent With Patient: 15 minutes, met with patient individually. - Pending Discharge Pending Discharge Within 24 Hours: No Pending Discharge Within 48 Hours: No ICD10 Worksheet Patient Problems: Problems Problem Status Onset Acute psychosis Acute Cannabis use disorder, severe, dependence Acute Bipolar I disorder, current or most recent episode manic, severe with mood- congruent psychotic features Chronic
[2018-07-19] MEDS: MAG HYDROX/AL HYDROX/SIMETH 30 ML UDCUP PO PRN (15:34)
[2018-07-20] MEDS: HALOPERIDOL 5 MG TAB PO PRN ×3 (02:08→17:10)
[2018-07-20] MEDS: LORazepam 1 MG TAB PO PRN ×3 (02:08→15:16)
--- NOTE | 2018-07-20 07:06 | SOAPPROG ---
SOAP Progress Note Assessment/Plan: Assessment: Bipolar I Disorder, Severe, with mood congruent psychotic features. No improvement noted. (see subjective/objective note). Patient is not safe to discharge at this time as patient continues to exhibit signs of psychosis and nicolasa, and express psychosis and nicolasa symptoms. Patient requires continued inpatient care because of current psychosis and nicolasa, and requires inpatient level of care to stabilize in order to no longer be gravely disabled due to mental illness. Due to patients current, acute state he is unable to communicate his basic needs and requires direction and prompting from staff to perform ADLs. Patient is unable to communicate his basic needs and unable to test reality. Patient exhibits inability to provide for himself, neglecting self-care, withdrawn from social interactions, currently shows inability to maintain any appropriate aspect of personal responsibility as an adult, patient becomes agitated and irritable when asked simple and appropriate questions. Patient required seclusion and PRN meds over the weekend due to agitation and threatening toward staff. Patient could benefit from continued inpatient hospitalization for crisis stabilization, safety, and medication evaluation. Plan: 1. Psychotropic medications: After reviewing options, risks, and benefits patient agrees to continue current mediations with following change: Ativan to 1 -2 mg po Q6HRS PRN. No other medication changes at this time as more time is needed to determine ongoing tolerability and efficacy. Consider increasing Geodon to 60 mg po BID after EKG results. Consider increasing lithium ER as indicated by lab drawn this AM. Plan is to continue to observe patient for response and side effects from medications, and ongoing monitoring and evaluation. 2. Review with patient informed consent and recommendations for psychotropic medication treatment listed below 3. Labs: no additional labs at this time 4. Therapy: continue milieu and group therapy 5. Further investigation including gathering information from patients relatives and review of past case records to inform treatment plan. 6. Safety/Wellness plan and follow-up outpatient appointments to be established prior to discharge. Next steps are for patient to meet with home child care provider to plan a safe discharge plan and establish outpatient services for ongoing treatment. 7. Confer with inpatient treatment team regarding treatment plan. 8. Psychosocial stressors addressed through case planner 9. Legal status: [facility] 10. Consider discharge next week if patient is in stable condition, safe, and has a safe discharge plan. 11. Substance abuse interventions: cannabis PSYCHOTROPIC MEDICATION TREATMENT INFORMED CONSENT and RECOMMENDATIONS: Review nature of condition, diagnosis, and prognosis. Review nature and purpose of psychotropic medication treatment. Review type of psychotropic medications being ordered. Review risk and benefits of psychotropic medication treatment. Review probable length of time patient will need to take medications. Review risk and benefits of not undergoing psychotropic medication treatment. Review alternative treatments to psychotropic medications. Review psychotropic medications contraindications, drug-drug interactions, side effects, and importance of reporting any side effects to a psychiatric provider or nurse during inpatient hospitalization, and upon discharge to patients psychiatric outpatient provider, primary care provider, or other health care management assistant. Review importance of asking a nurse, psychiatric provider, or primary care provider any questions or problems concerning the psychotropic medications. Verify patient understands the information that has been provided, and understands, accepts, and agrees to psychotropic medications. Review patients safety plan and importance of patient to report to staff while hospitalized if patient is ever a danger to self/others, or unable to care for self, and upon discharge, the importance for patient to contact [facility] or [facility], or go to the nearest emergency room, if patient is ever a danger to self/others, or unable to care for self. Recommend that upon discharge patient establish medication management treatment with a psychiatric provider, establishes routine therapy appointments, and follow-up with primary care provider. Verify patient understands and agrees to these recommendations. 07/20/18 07:04 Subjective: Following up with patient for evaluation of psychosis and safety. Patient reports, "I am Cas George. This isn't something new I just came up with, and is not going to change. I was born this way. I need to get out of here so I can go to [facility]'s . You are probably unaware that she has a coming up. Also I am considering joining the [facility] when I get out of here." Patient expresses the following psychiatric symptoms severely anxious. Patient reports taking medications as prescribed, and describes response to medications as good. Patient does not report undesirable side effects from the medications, agrees to continue current medications. Patient describes getting 7 hours of sleep, and reports he feels rested. Patient agrees to EKG on Thursday. Objective: Vital Signs Temp Pulse Resp BP Pulse Ox 36.2 C 97 14 127/82 H 97 07/19/18 06:00 07/20/18 06:00 07/20/18 06:00 07/20/18 06:00 07/20/18 06:00 NURSING REPORT: Consulted with nursing for update on patients progress in treatment. Nurses report patient is not engaged in treatment, is not attending groups, slept 6 hours, expresses the following psychiatric symptoms: severely agitated, exhibits the following psychiatric symptoms: agitated, threatening, posturing toward staff, required seclusion and PRN meds over the weekend due to aggression and threats toward staff; delusional regarding being Cas George and needing to attend [facility]; is eating all meals, is agreeable to medications and taking as prescribed with no report of side effects , with no s/s of EPS/akathisia, and denies SI/HI, denies A/V hallucinations, and denies delusions. MD REPORT FROM WEEKEND: Has been in seclusion every day. Agitated, aggressive toward staff. Geodon seemed to be the most effective antipsychotic so far. MSE: The patient is a well-nourished male looking stated chronological age. Attire is inappropriate and dress is casual and disheveled. Grooming status is inappropriate and disheveled. Ambulation is independent. Gait is normal and coordinated. Posture is tense, threatening, and posturing. Eye contact is inappropriate and staring. Motor activity is appropriate with purposeful, organized, coordinated movements; with no involuntary movements. Attitude is uncooperative. Patient appears distracted and does not relate well to this interviewer. Language production is spontaneous. Rate is pressured, latency of response is shortened, volume is high and inappropriate. Amount is hyperverbal. Articulation is clear, irritable, pressured. Patient reports mood as okay with incongruent and expansive affect. Patients thought process disorganized, tangential, nonsensical, illogical, and non-linear. Patient does not report suicidal/homicidal thoughts, ideas, or plans. Patient denies auditory, visual hallucinations. Patient reports delusions. Patient does not appear to be attending to internal stimuli. Patients attention and concentration are poor. Patient is oriented to person, place, time. Patients insight and judgment poor. - Time Spent With Patient Time Spent With Patient: 15 minutes, met with patient individually. - Pending Discharge Pending Discharge Within 24 Hours: No Pending Discharge Within 48 Hours: No ICD10 Worksheet Patient Problems: Problems Problem Status Onset Acute psychosis Acute Cannabis use disorder, severe, dependence Acute Bipolar I disorder, current or most recent episode manic, severe with mood- congruent psychotic features Chronic
[2018-07-20] MEDS: ZIPRASIDONE HCL 40 MG CAP PO SCH ×2 (07:55→17:10)
[2018-07-20] MEDS: LITHIUM CARBONATE ER 300 MG TAB PO SCH ×2 (07:55→21:13)
[2018-07-21] MEDS: HALOPERIDOL 5 MG TAB PO PRN ×2 (00:31→15:22)
[2018-07-21] MEDS: LORazepam 1 MG TAB PO PRN ×4 (00:32→17:34)
--- NOTE | 2018-07-21 06:35 | SOAPPROG ---
SOAP Progress Note Assessment/Plan: Assessment: Bipolar I Disorder, Severe, with mood congruent psychotic features. No improvement noted. (see subjective/objective note). Patient is not safe to discharge at this time as patient continues to exhibit signs of psychosis and nicolasa, and express psychosis and nicolasa symptoms. Patient requires continued inpatient care because of current psychosis and nicolasa, and requires inpatient level of care to stabilize in order to no longer be gravely disabled due to mental illness. Due to patients current, acute state he is unable to communicate his basic needs and requires direction and prompting from staff to perform ADLs. Patient is unable to communicate his basic needs and unable to test reality. Patient exhibits inability to provide for himself, neglecting self-care, withdrawn from social interactions, currently shows inability to maintain any appropriate aspect of personal responsibility as an adult, patient becomes agitated and irritable when asked simple and appropriate questions. Patient required seclusion and PRN meds over the weekend due to agitation and threatening toward staff. Patient required PRN medications last night for acute agitation. Patient could benefit from continued inpatient hospitalization for crisis stabilization, safety, and medication evaluation. Additionally, could benefit from EKG today, consider increasing Geodon based on results, and lithium level Thursday. Plan: 1. Psychotropic medications: After reviewing options, risks, and benefits patient agrees to continue current mediations. No medication changes at this time as more time is needed to determine ongoing tolerability and efficacy. Consider increasing Geodon to 60 mg po BID after EKG results. Plan is to continue to observe patient for response and side effects from medications, and ongoing monitoring and evaluation. 2. Review with patient informed consent and recommendations for psychotropic medication treatment listed below 3. Labs: no additional labs at this time 4. Therapy: continue milieu and group therapy 5. Further investigation including gathering information from patients relatives and review of past case records to inform treatment plan. 6. Safety/Wellness plan and follow-up outpatient appointments to be established prior to discharge. Next steps are for patient to meet with pediatric care coordinator to plan a safe discharge plan and establish outpatient services for ongoing treatment. 7. Confer with inpatient treatment team regarding treatment plan. 8. Psychosocial stressors addressed through insurance case manager 9. Legal status: [facility] 10. Consider discharge Thursday if patient is in stable condition, safe, and has a safe discharge plan. 11. Substance abuse interventions: cannabis PSYCHOTROPIC MEDICATION TREATMENT INFORMED CONSENT and RECOMMENDATIONS: Review nature of condition, diagnosis, and prognosis. Review nature and purpose of psychotropic medication treatment. Review type of psychotropic medications being ordered. Review risk and benefits of psychotropic medication treatment. Review probable length of time patient will need to take medications. Review risk and benefits of not undergoing psychotropic medication treatment. Review alternative treatments to psychotropic medications. Review psychotropic medications contraindications, drug-drug interactions, side effects, and importance of reporting any side effects to a psychiatric provider or nurse during inpatient hospitalization, and upon discharge to patients psychiatric outpatient provider, primary care provider, or other health childcare administrator. Review importance of asking a nurse, psychiatric provider, or primary care provider any questions or problems concerning the psychotropic medications. Verify patient understands the information that has been provided, and understands, accepts, and agrees to psychotropic medications. Review patients safety plan and importance of patient to report to staff while hospitalized if patient is ever a danger to self/others, or unable to care for self, and upon discharge, the importance for patient to contact [facility] or [facility], or go to the nearest emergency room, if patient is ever a danger to self/others, or unable to care for self. Recommend that upon discharge patient establish medication management treatment with a psychiatric provider, establishes routine therapy appointments, and follow-up with primary care provider. Verify patient understands and agrees to these recommendations. 07/21/18 06:35 Subjective: Following up with patient for evaluation of psychosis and safety. Patient reports, "I slept better last night, when am I going to get out of here?" Patient expresses the following psychiatric symptoms anxiety. Patient reports taking medications as prescribed, and describes response to medications as okay. Patient does not report undesirable side effects from the medications, agrees to continue current medications. Patient describes getting 9 hours of sleep, and reports he feels rested. Patient agrees to EKG today. Objective: Vital Signs Temp Pulse Resp BP Pulse Ox 36.2 C 97 14 127/82 H 97 07/19/18 06:00 07/20/18 06:00 07/20/18 06:00 07/20/18 06:00 07/20/18 06:00 NURSING REPORT: Consulted with nursing for update on patients progress in treatment. Nurses report patient is not engaged in treatment, is not attending groups, slept 6 hours, expresses the following psychiatric symptoms: severely agitated, exhibits the following psychiatric symptoms: agitated, required PRN meds last night for acute agitation; delusional regarding needing to attend [facility]'s ; is eating all meals, is agreeable to medications and taking as prescribed with no report of side effects, with no s/s of EPS/ akathisia, and denies SI/HI, denies A/V hallucinations, and reports delusions. MSE: The patient is a well-nourished male looking stated chronological age. Attire is inappropriate and dress is casual and disheveled. Grooming status is inappropriate and disheveled. Ambulation is independent. Gait is normal and coordinated. Posture is tense, threatening, and posturing. Eye contact is inappropriate and staring. Motor activity is appropriate with purposeful, organized, coordinated movements; with no involuntary movements. Attitude is uncooperative. Patient appears distracted and does not relate well to this interviewer. Language production is spontaneous. Rate is pressured, latency of response is shortened, volume is high and inappropriate. Amount is hyperverbal. Articulation is clear, irritable, pressured. Patient reports mood as okay with incongruent and expansive affect. Patients thought process disorganized, tangential, nonsensical, illogical, and non-linear. Patient does not report suicidal/homicidal thoughts, ideas, or plans. Patient denies auditory, visual hallucinations. Patient reports delusions; grandiose. Patient does not appear to be attending to internal stimuli. Patients attention and concentration are poor. Patient is oriented to person, place, time. Patients insight and judgment poor. - Time Spent With Patient Time Spent With Patient: 15 minutes, met with patient individually. - Pending Discharge Pending Discharge Within 24 Hours: No Pending Discharge Within 48 Hours: Yes Pending Discharge Date: 07/23/18 Pending Discharge Time: 11:00 ICD10 Worksheet Patient Problems: Problems Problem Status Onset Acute psychosis Acute Cannabis use disorder, severe, dependence Acute Bipolar I disorder, current or most recent episode manic, severe with mood- congruent psychotic features Chronic
[2018-07-21] MEDS: ZIPRASIDONE HCL 40 MG CAP PO SCH (08:22)
[2018-07-21] MEDS: LITHIUM CARBONATE ER 300 MG TAB PO SCH ×2 (08:22→21:21)
[2018-07-21] MEDS ORDERED: ZIPRASIDONE HCL 40 MG CAP PO SCH (14:11)
[2018-07-21] MEDS: ZIPRASIDONE HCL 20 MG CAP PO SCH (17:32)
--- NOTE | 2018-07-21 17:58 | CPEKG ---
Test Reason : OPEN Blood Pressure : / mmHG Vent. Rate : 092 BPM Atrial Rate : 091 BPM P-R Int : 156 ms QRS Dur : 084 ms QT Int : 348 ms P-R-T Axes : 071 060 056 degrees QTc Int : 431 ms SINUS RHYTHM Confirmed by Casey Arshad ([id number]) on 07/21/2018 5:58:22 PM Referred By: Confirmed By:Casey Arshad
[2018-07-22] MEDS: HALOPERIDOL 5 MG TAB PO PRN (03:05)
[2018-07-22] MEDS: LORazepam 1 MG TAB PO PRN (03:06)
[2018-07-22] MEDS ORDERED: LORazepam 1 MG TAB PO PRN (06:30)
[2018-07-22 06:55] VITALS: BP 124/64
[2018-07-22] MEDS: LITHIUM CARBONATE ER 300 MG TAB PO SCH (08:36)
[2018-07-22] MEDS: ZIPRASIDONE HCL 20 MG CAP PO SCH ×2 (08:39→17:36)
[2018-07-22] MEDS: LORazepam 1 MG TAB PO SCH ×2 (12:01→16:12)
[2018-07-22] MEDS ORDERED: LORazepam 1 MG TAB PO SCH (16:00)
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
== END 2018-07-22 18:08 | disposition home or self-care (01) | DRG 885 ==
LOC: BBEH 07-15 09:45
PROVIDERS: ADMIT Psychiatry & Neurology Psychiatry; ATTEND Psychiatry & Neurology Psychiatry
DX: F31.2 Bipolar disorder, current episode manic severe with psychotic features (principal); F12.259 Cannabis dependence with psychotic disorder, unspecified
CPT/HCPCS: 80305; G0480; J1200; J2060; J3486